=== PATIENT | female | born 1965 | race Caucasian/White ===

== ENCOUNTER 2016-04-20 03:32 | Emergency (ER) | payer MEDICARE, MEDICAID ==
[2016-04-20] MEDS ORDERED: HYDROCODONE/ACETAMINOPHEN 5-325 MG 6 TAB/DSPK PO PRN (04:41)
[2016-04-20] MEDS ORDERED: PENICILLIN V POTASSIUM 500 MG TABLET PO ONE (04:41)
[2016-04-20] MEDS ORDERED: BENZONATATE 100 MG CAPSULE PO ONE (04:41)
--- NOTE | 2016-04-20 04:45 | ER Document Report ---
HPI - HPI Patient complains to provider of: dental pain Pain Level: 5 Context: Patient is a 50-year-old female that comes emergency department for chief complaint of worsening pain in her upper mouth on both sides for the past 3 days , she states she has known dental fractures and fillings that came out, she has a dental appointment in 2 weeks. She denies fever, sore throat, neck pain. - REPRODUCTIVE Reproductive: DENIES: : - DERM Skin Color: Normal Past Medical History - General Information source: Patient - Social History Smoking Status: Current Every Day Smoker Frequency of alcohol use: None Drug Abuse: None Lives with: Alone Family History: None, Reviewed & Not Pertinent Patient has suicidal ideation: No Patient has homicidal ideation: No - Past Medical History Cardiac Medical History: Reports: Hx Congestive Heart Failure, Hx Hypercholesterolemia Denies: Hx Coronary Artery Disease Pulmonary Medical History: Reports: Hx Bronchitis, Hx COPD, Hx Pneumonia, Hx Tuberculosis Endocrine Medical History: Denies: Hx Diabetes Mellitus Type 1, Hx Diabetes Mellitus Type 2 Renal/ Medical History: Denies: Hx Peritoneal Dialysis Musculoskeltal Medical History: Reports Hx Arthritis Psychiatric Medical History: Reports: Hx Depression Past Surgical History: Reports: Hx Appendectomy, Hx Hysterectomy, Hx Tonsillectomy - Immunizations Hx Diphtheria, Pertussis, Tetanus Vaccination: No - > 10 years Vertical Provider Document - CONSTITUTIONAL General Appearance: WD/WN, No Apparent Distress - INFECTION CONTROL TRAVEL OUTSIDE OF THE [place] IN LAST 30 DAYS: No - HEENT HEENT: Atraumatic, Normocephalic. negative: Pharyngeal Exudate, Pharyngeal Tenderness, Pharyngeal Erythema, Tympanic Membrane Red, Tympanic Membrane Bulging Mouth Diagram: 1 - Widespread dental decay with multiple dental caries and mildly erythematous gumline 2 - Widespread dental decay with multiple dental caries and mildly erythematous gumline - NECK Neck: Normal Inspection - RESPIRATORY Respiratory: Breath Sounds Normal, No Respiratory Distress O2 Sat by Pulse Oximetry: 99 - CARDIOVASCULAR Cardiovascular: Regular Rate, Regular Rhythm - GI/ABDOMEN Gastrointestinal: Abdomen Soft, Abdomen Non-Tender - MUSCULOSKELETAL/EXTREMETIES Musculoskeletal/Extremeties: MAEW, FROM, Non-Tender - NEURO Level of Consciousness: Awake, Alert - DERM Integumentary: Warm, Dry, No Rash Course - Vital Signs Vital signs: Temp Pulse Resp BP Pulse Ox 97.7 F 103 H 20 148/99 H 99 04/20/16 03:40 04/20/16 03:40 04/20/16 03:40 04/20/16 03:40 04/20/16 03:40 Discharge - Discharge Clinical Impression: Tooth infection, Pain, dental Condition: Stable Disposition: HOME, SELF-CARE Additional Instructions: Take the antibiotic as directed, take pain medications if needed, follow-up with your dental appointment as planned. Return to emergency department for any concerning or worsening symptoms. Prescriptions: Hydrocodone/Acetaminophen [[place] 5-325 mg Tablet] 1 - 2 tab PO ASDIR #15 tablet Penicillin V Potassium [Penicillin Vk 500 mg Tablet] 500 mg PO BID #20 tablet Forms: Elevated Blood Pressure
[2016-04-20 05:37] VITALS: BP 142/72
== END 2016-04-20 05:30 | disposition home or self-care (01) ==
LOC: ER 03:32
DX: K04.7 Periapical abscess without sinus (principal); K08.89 Other specified disorders of teeth and supporting structures; F17.210 Nicotine dependence, cigarettes, uncomplicated
CPT/HCPCS: 99282; A9270 ×3

== ENCOUNTER → 2016-04-30 | Outpatient (CLI) | payer MEDICARE, MEDICAID | LOC: RAD 13:17 | PROVIDERS: ATTEND Family Medicine | DX: R91.8 Other nonspecific abnormal finding of lung field (principal) | CPT/HCPCS: 71250 ==

== ENCOUNTER 2016-06-16 13:42 | Emergency (ER) | payer MEDICARE, MEDICAID ==
[2016-06-16 14:03] VITALS: BP 171/95
--- NOTE | 2016-06-16 15:14 | ER Document Report ---
ED Medical Screen (RME) - General Chief Complaint: Headache Stated Complaint: SWEATS AND HEADACHE Mode of Arrival: Wheelchair Information source: Patient Notes: 50-year-old female presents with complaints of a headache of 2 week duration with 2 separate episodes where she became shaky sweaty. I have greeted and performed a rapid initial assessment of this patient. A comprehensive ED assessment and evaluation of the patient, analysis of test results and completion of the medical decision making process will be conducted by additional ED providers. PHYSICAL EXAMINATION: GENERAL: Well-appearing, well-nourished and in no acute distress. HEAD: Atraumatic, normocephalic. EYES: Pupils equal round extraocular movements intact, conjunctiva are normal. ENT: Nares patent NECK: Normal range of motion LUNGS: No respiratory distress Musculoskeletal: Normal range of motion NEUROLOGICAL: Normal speech, normal gait. PSYCH: Normal mood, normal affect. SKIN: Warm, Dry, normal turgor, no rashes or lesions noted. TRAVEL OUTSIDE OF THE [place] IN LAST 30 DAYS: No - Related Data Allergies/Adverse Reactions: ketorolac tromethamine [From Toradol] Allergy (Verified 06/16/16 14:00) rash tramadol HCl [From Ultram] Allergy (Verified 06/16/16 14:00) rash Past Medical History - Past Medical History Cardiac Medical History: Reports: Hx Congestive Heart Failure, Hx Hypercholesterolemia Denies: Hx Coronary Artery Disease Pulmonary Medical History: Reports: Hx Bronchitis, Hx COPD, Hx Pneumonia, Hx Tuberculosis Endocrine Medical History: Denies: Hx Diabetes Mellitus Type 1, Hx Diabetes Mellitus Type 2 Renal/ Medical History: Denies: Hx Peritoneal Dialysis Musculoskeltal Medical History: Reports Hx Arthritis Psychiatric Medical History: Reports: Hx Depression Past Surgical History: Reports: Hx Appendectomy, Hx Hysterectomy, Hx Tonsillectomy - Immunizations Hx Diphtheria, Pertussis, Tetanus Vaccination: No - > 10 years Physical Exam - Vital signs Vitals: Temp Pulse Resp BP Pulse Ox 97.3 F 103 H 20 171/95 H 96 06/16/16 14:02 06/16/16 14:02 06/16/16 14:02 06/16/16 14:02 06/16/16 14:02 Course - Vital Signs Vital signs: Temp Pulse Resp BP Pulse Ox 97.3 F 103 H 20 171/95 H 96 06/16/16 14:02 06/16/16 14:02 06/16/16 14:02 06/16/16 14:02 06/16/16 14:02
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
[2016-06-16 15:51] LABS: ABSOLUTE BASOPHILS # (AUTO) 0.1 10^3/uL (0.0-0.2); ABSOLUTE EOSINOPHILS # (AUTO) 0.4 10^3/uL (0.0-0.6); ABSOLUTE LYMPHOCYTES (AUTO) 4.2 10^3/uL (0.5-4.7); ABSOLUTE MONOCYTES (AUTO) 0.6 10^3/uL (0.1-1.4); ABSOLUTE NEUT (AUTO) 6.3 10^3/uL (1.7-8.2); BASOPHILS % (AUTO) 0.8 % (0-2); EOSINOPHILS % (AUTO) 3.1 % (0-6); HEMATOCRIT 43.5 % (36.0-47.0); HEMOGLOBIN 14.6 g/dL (12.0-15.5); HGB HCT DIFFERENCE 0.3; LYMPHOCYTES % (AUTO) 36.3 % (13-45); MEAN CORPUSCULAR HEMOGLOBIN 30.2 pg (27.0-33.4); MEAN CORPUSCULAR HGB CONC 33.6 g/dL (32.0-36.0); MEAN CORPUSCULAR VOLUME 90 fl (80-97); MONOCYTES % (AUTO) 5.1 % (3-13); RED BLOOD COUNT 4.85 10^6/uL (3.72-5.28); RED CELL DISTRIBUTION WIDTH 14.8 % (11.5-14.0); SEGMENTED NEUTROPHILS % (AUTO) 54.7 % (42-78); WHITE BLOOD COUNT 11.5 10^3/uL (4.0-10.5)
[2016-06-16 16:01] LABS: ALANINE AMINOTRANSFERASE 24 U/L (9-52); ALBUMIN 4.2 g/dL (3.5-5.0); ALKALINE PHOSPHATASE 93 U/L (38-126); ANION GAP 12 (5-19); ASPARTATE AMINO TRANSFERASE 18 U/L (14-36); BILIRUBIN,DIRECT 0.4 mg/dL (0.0-0.4); BILIRUBIN,TOTAL 0.5 mg/dL (0.2-1.3); BLOOD UREA NITROGEN 12 mg/dL (7-20); CALCIUM 9.4 mg/dL (8.4-10.2); CARBON DIOXIDE 26 mmol/L (22-30); CHLORIDE 107 mmol/L (98-107); CREATINE KINASE 45 U/L (30-135); CREATININE RESULT 0.93 mg/dL (0.52-1.25); GLUCOSE 117 mg/dL (75-110); POTASSIUM 4.4 mmol/L (3.6-5.0); TOTAL PROTEIN 7.8 g/dL (6.3-8.2)
[2016-06-16] MEDS ORDERED: ONDANSETRON 4 MG TAB.RAPDIS PO ONE (16:04)
[2016-06-16] MEDS ORDERED: ONDANSETRON 4 MG TAB.RAPDIS ONE (16:08)
[2016-06-16 16:12] LABS: CREATINE KINASE MB < 0.22 ng/mL (<4.55); TROPONIN I < 0.012 ng/mL
== END 2016-06-16 16:40 | disposition home or self-care (01) ==
LOC: ER 13:42
DX: R51 Headache (principal); R11.0 Nausea; R61 Generalized hyperhidrosis; R06.00 Dyspnea, unspecified; R15.9 Full incontinence of feces; R32 Unspecified urinary incontinence; R03.0 Elevated blood-pressure reading, without diagnosis of hypertension; Z79.899 Other long term (current) drug therapy; Z88.5 Allergy status to narcotic agent; Z88.8 Allergy status to other drugs, medicaments and biological substances; F17.210 Nicotine dependence, cigarettes, uncomplicated
CPT/HCPCS: 99284; 36415; 82553; 82550; 85025; 80053; 84484; 70450; A9270; S0119

== ENCOUNTER 2016-06-18 02:28 | Emergency (ER) | payer MEDICARE, MEDICAID ==
[2016-06-18 02:43] VITALS: BP 165/90
[2016-06-18] MEDS ORDERED: DIPHENHYDRAMINE HCL 50 MG/ML VIAL IV ONE (04:18)
[2016-06-18] MEDS ORDERED: METHOCARBAMOL INJ/PF 1000 MG/10 ML SDV IV ONE (04:18)
[2016-06-18] MEDS ORDERED: METOCLOPRAMIDE HCL INJ/PF 10 MG/2 ML SDV IV ONE (04:18)
[2016-06-18] MEDS ORDERED: NORMAL SALINE 1000 ML 1,000 ML IV ONE (04:21)
--- NOTE | 2016-06-18 04:22 | ER Document Report ---
ED General - General Chief Complaint: Headache Stated Complaint: HEADACHE Time seen by provider: 04:21 Notes: Patient is a 50-year-old female that comes emergency department for chief complaint of headache, patient also states that she is having intermittent lower abdominal pain and nausea. Patient states she was evaluated yesterday in this emergency department, had a CAT scan of the head, had blood work, was discharged follow-up with her primary care. Patient denies head injury, fever, focal numbness or weakness, visual changes, vomiting. Patient denies history of migraines. She states she has a pain in the back of her head that runs down to her right shoulder and also pain around her forehead. Patient has a history of bipolar, anxiety, depression, hyperlipidemia, hysterectomy, appendectomy. Denies SI or HI TRAVEL OUTSIDE OF THE [place] IN LAST 30 DAYS: No - Related Data Allergies/Adverse Reactions: ketorolac tromethamine [From Toradol] Allergy (Verified 06/16/16 14:00) rash tramadol HCl [From Ultram] Allergy (Verified 06/16/16 14:00) rash Past Medical History - General Information source: Patient - Social History Smoking Status: Current Some Day Smoker Frequency of alcohol use: Occasional Lives with: Family Family History: None, Reviewed & Not Pertinent Patient has suicidal ideation: No Patient has homicidal ideation: No - Past Medical History Cardiac Medical History: Reports: Hx Congestive Heart Failure, Hx Hypercholesterolemia Denies: Hx Coronary Artery Disease Pulmonary Medical History: Reports: Hx Bronchitis, Hx COPD, Hx Pneumonia, Hx Tuberculosis Endocrine Medical History: Denies: Hx Diabetes Mellitus Type 1, Hx Diabetes Mellitus Type 2 Renal/ Medical History: Denies: Hx Peritoneal Dialysis Musculoskeltal Medical History: Reports Hx Arthritis Psychiatric Medical History: Reports: Hx Depression Past Surgical History: Reports: Hx Appendectomy, Hx Hysterectomy, Hx Tonsillectomy - Immunizations Hx Diphtheria, Pertussis, Tetanus Vaccination: No - > 10 years Review of Systems - Review of Systems Constitutional: No symptoms reported EENT: No symptoms reported Cardiovascular: No symptoms reported Respiratory: No symptoms reported Gastrointestinal: See HPI Genitourinary: No symptoms reported Female Genitourinary: No symptoms reported Musculoskeletal: No symptoms reported Skin: No symptoms reported Hematologic/Lymphatic: No symptoms reported Neurological/Psychological: See HPI Physical Exam - Vital signs Vitals: Temp Pulse Resp BP Pulse Ox 97.3 F 79 18 165/90 H 97 04/27/17 02:39 06/18/16 02:39 06/18/16 02:39 06/18/16 02:39 06/18/16 02:39 Interpretation: Normal - General General appearance: Appears well, Alert In distress: None - HEENT Head: Normocephalic, Atraumatic Eyes: Normal Conjunctiva: Normal Extraocular movements intact: Yes Eyelashes: Normal Pupils: PERRL Sinus: Normal Nasal: Normal Mouth/Lips: Normal Mucous membranes: Normal Pharynx: Normal Neck: Normal - Respiratory Respiratory status: No respiratory distress Chest status: Nontender Breath sounds: Normal. No: Decreased air movement, Wheezing Chest palpation: Normal - Cardiovascular Rhythm: Regular. No: Tachycardia Heart sounds: Normal auscultation, S1 appreciated, S2 appreciated Murmur: No - Abdominal Inspection: Normal Distension: No distension Bowel sounds: Normal Tenderness: Nontender Organomegaly: No organomegaly - Back Back: Tender - There is mild tenderness in the right paracervical and trapezius musculature, no midline tenderness, normal upper and lower extremity range of motion, strength, distal neurovascular exam, no saddle anesthesia - Extremities General upper extremity: Normal inspection, Nontender, Normal color, Normal ROM , Normal temperature General lower extremity: Normal inspection, Nontender, Normal color, Normal ROM , Normal temperature, Normal weight bearing. No: Casi's sign - Neurological Neuro grossly intact: Yes Cognition: Normal Orientation: AAOx4 [place] Coma Scale Eye Opening: Spontaneous [place] Coma Scale Verbal: Oriented [place] Coma Scale Motor: Obeys Commands [place] Coma Scale Total: 15 Speech: Normal Motor strength normal: LUE, RUE, LLE, RLE Sensory: Normal - Psychological Associated symptoms: Normal affect - Patient is cooperative, makes good eye contact, conversational, Normal mood - Skin Skin Temperature: Warm Skin Moisture: Dry Skin Color: Normal Course - Re-evaluation Re-evalutation: Patient with mildly tender right paracervical and trapezius muscles on examination, complaining of a headache, appears only mildly uncomfortable. No nuchal rigidity, fever, reported injury, normal neurological exam. CBC with mild leukocytosis, mild elevation of lymphocytes, no shift. Chemistry unremarkable. Abdomen completely benign and soft. On reexamination patient has received medications, sleeping, easily aroused, she states her headache is completely gone, she expresses satisfaction and gratefulness. Provided with Phenergan, Fioricet, discussed follow-up and return precautions, patient states understanding and agreement. - Vital Signs Vital signs: Temp Pulse Resp BP Pulse Ox 97.3 F 79 18 165/90 H 97 06/18/16 02:39 06/18/16 02:39 06/18/16 02:39 06/18/16 02:39 06/18/16 02:39 - Laboratory Result Diagrams: 06/18/16 05:05 06/18/16 05:05 Laboratory results interpreted by me: 06/18/16 06/18/16 06/18/16 05:01 05:05 05:05 WBC 12.1 H RDW 15.1 H Absolute Lymphocytes 4.9 H Sodium 146.2 H Urine Blood SMALL H Discharge - Discharge Clinical Impression: Headache Qualifiers: Headache type: unspecified Headache chronicity pattern: acute headache Intractability: not intractable Qualified Code(s): R51 - Headache Abdominal pain Qualifiers: Abdominal location: generalized Qualified Code(s): R10.84 - Generalized abdominal pain Condition: Stable Disposition: HOME, SELF-CARE Additional Instructions: Your symptoms, examination, and response to treatment are most consistent with a tension headache triggering a migraine. Laboratory workup is nonspecific, no acute abnormalities noted. Avoid recreational drugs. Take the medications prescribed in combination for headaches if needed, take in addition to your home medications. Return to emergency department for any concerning or worsening symptoms. Prescriptions: Butalb/Acetaminophen/Caffeine [Fioricet (50-325-40 mg) Tablet] 1 tab PO Q4HP PRN #30 tab PRN Reason: Promethazine HCl [Phenergan 25 mg Tablet] 1 - 2 tab PO Q6H PRN #15 tablet PRN Reason: Forms: Elevated Blood Pressure
[2016-06-18 05:20] LABS: ABSOLUTE BASOPHILS # (AUTO) 0.1 10^3/uL (0.0-0.2); ABSOLUTE EOSINOPHILS # (AUTO) 0.4 10^3/uL (0.0-0.6); ABSOLUTE LYMPHOCYTES (AUTO) 4.9 10^3/uL (0.5-4.7); ABSOLUTE MONOCYTES (AUTO) 0.7 10^3/uL (0.1-1.4); BASOPHILS % (AUTO) 0.9 % (0-2); EOSINOPHILS % (AUTO) 3.1 % (0-6); HEMATOCRIT 43.4 % (36.0-47.0); HEMOGLOBIN 14.5 g/dL (12.0-15.5); HGB HCT DIFFERENCE 0.1; LYMPHOCYTES % (AUTO) 40.2 % (13-45); MEAN CORPUSCULAR HEMOGLOBIN 29.9 pg (27.0-33.4); MEAN CORPUSCULAR HGB CONC 33.5 g/dL (32.0-36.0); MEAN CORPUSCULAR VOLUME 89 fl (80-97); MONOCYTES % (AUTO) 6.1 % (3-13); RED BLOOD COUNT 4.85 10^6/uL (3.72-5.28); RED CELL DISTRIBUTION WIDTH 15.1 % (11.5-14.0); SEGMENTED NEUTROPHILS % (AUTO) 49.7 % (42-78); WHITE BLOOD COUNT 12.1 10^3/uL (4.0-10.5)
[2016-06-18 05:27] LABS: APPEARANCE,URINE CLEAR; BILIRUBIN,URINE NEGATIVE (NEGATIVE); GLUCOSE, URINE NEGATIVE (NEGATIVE); KETONES,URINE NEGATIVE (NEGATIVE); LEUKOCYTE ESTERASE,URINE NEGATIVE (NEGATIVE); NITRITE,URINE NEGATIVE (NEGATIVE); PROTEIN,URINE NEGATIVE (NEGATIVE); URINE SPECIFIC GRAVITY 1.004; UROBILINOGEN,URINE NEGATIVE mg/dL (<2.0)
[2016-06-18 05:36] LABS: ALANINE AMINOTRANSFERASE 21 U/L (9-52); ALBUMIN 4.2 g/dL (3.5-5.0); ALKALINE PHOSPHATASE 94 U/L (38-126); ANION GAP 14 (5-19); ASPARTATE AMINO TRANSFERASE 21 U/L (14-36); BILIRUBIN,DIRECT 0.4 mg/dL (0.0-0.4); BILIRUBIN,TOTAL 0.5 mg/dL (0.2-1.3); BLOOD UREA NITROGEN 11 mg/dL (7-20); CALCIUM 9.9 mg/dL (8.4-10.2); CARBON DIOXIDE 26 mmol/L (22-30); CHLORIDE 106 mmol/L (98-107); CREATININE RESULT 0.66 mg/dL (0.52-1.25); GLUCOSE 103 mg/dL (75-110); POTASSIUM 4.2 mmol/L (3.6-5.0); SODIUM 146.2 mmol/L (137-145); TOTAL PROTEIN 8.2 g/dL (6.3-8.2)
[2016-06-18 05:41] LABS: URINE BARBITURATES SCREEN NEGATIVE; URINE METHADONE SCREEN NEGATIVE; URINE OPIATES LOW NEGATIVE; URINE PHENCYCLIDINE SCREEN NEGATIVE
[2016-06-18] MEDS ORDERED: MORPHINE SULFATE 10 MG/ML INJ IV ONE (06:11)
== END 2016-06-18 07:15 | disposition home or self-care (01) ==
LOC: ER 02:28
DX: R51 Headache (principal); R10.84 Generalized abdominal pain; R10.30 Lower abdominal pain, unspecified; R11.0 Nausea; F17.200 Nicotine dependence, unspecified, uncomplicated
CPT/HCPCS: 99284; 96361; 96375; 96365; 36415; 85025; 80053; 81001; 80307; J1200; J2800; J2765; J7030

== ENCOUNTER 2016-07-14 11:01 | Emergency (ER) | payer MEDICARE, MEDICAID ==
--- NOTE | 2016-07-14 12:29 | ER Document Report ---
HPI - HPI Patient complains to provider of: right ankle splint Onset: Last week Quality of pain: Achy Severity: Moderate Pain Level: 4 Context: Patient was seen and diagnosed with right ankle sprain last week by her primary care physician. Patient states [employer] is giving her and positioned hard time about ankle splint that was prescribed. Primary care physician instructed patient to come to the emergency room for right ankle splint. Associated Symptoms: None Exacerbated by: Walking Relieved by: Denies Similar symptoms previously: Yes Recently seen / treated by doctor: Yes - ROS ROS below otherwise negative: Yes Systems Reviewed and Negative: Yes All other systems reviewed and negative - CONSTITUTIONAL Constitutional: DENIES: Fever - EENT EENT: DENIES: Congestion - NEURO Neurology: DENIES: Headache - CARDIOVASCULAR Cardiovascular: DENIES: Chest pain - RESPIRATORY Respiratory: DENIES: Trouble Breathing - GASTROINTESTINAL Gastrointestinal: DENIES: Abdominal Pain - URINARY Urinary: DENIES: Dysuria - REPRODUCTIVE Reproductive: DENIES: : - MUSCULOSKELETAL Musculoskeletal: REPORTS: Extremity pain - DERM Skin Color: Normal Skin Problems: None Past Medical History - General Information source: Patient - Social History Smoking Status: Current Every Day Smoker Cigarette use (# per day): Yes Frequency of alcohol use: None Drug Abuse: None Lives with: Family Family History: None, Reviewed & Not Pertinent Patient has suicidal ideation: No Patient has homicidal ideation: No - Past Medical History Cardiac Medical History: Reports: Hx Congestive Heart Failure, Hx Hypercholesterolemia Pulmonary Medical History: Reports: Hx Bronchitis, Hx COPD, Hx Pneumonia, Hx Tuberculosis Musculoskeltal Medical History: Reports Hx Arthritis Psychiatric Medical History: Reports: Hx Depression Past Surgical History: Reports: Hx Appendectomy, Hx Hysterectomy, Hx Tonsillectomy - Immunizations Hx Diphtheria, Pertussis, Tetanus Vaccination: No - > 10 years Vertical Provider Document - CONSTITUTIONAL Agree With Documented VS: Yes Exam Limitations: No Limitations General Appearance: WD/WN, No Apparent Distress - INFECTION CONTROL TRAVEL OUTSIDE OF THE [place] IN LAST 30 DAYS: No - HEENT HEENT: Atraumatic, Normocephalic - RESPIRATORY Respiratory: Breath Sounds Normal, No Respiratory Distress O2 Sat by Pulse Oximetry: 98 - CARDIOVASCULAR Cardiovascular: Regular Rate, Regular Rhythm - MUSCULOSKELETAL/EXTREMETIES Musculoskeletal/Extremeties: Tender - Right ankle, No Edema - NEURO Level of Consciousness: Awake, Alert, Appropriate - DERM Integumentary: Warm, Dry Course - Vital Signs Vital signs: Temp Pulse Resp BP Pulse Ox 98.0 F 96 18 164/80 H 98 07/14/16 11:25 07/14/16 11:25 07/14/16 11:25 07/14/16 11:25 07/14/16 11:25 Procedures - Immobilization Right Ankle Time completed: 13:02 Pre-Proc Neuro Vasc Exam: Normal Immobilizer type: Ankle stirrup Performed by: PCT Post-Proc Neuro Vasc Exam: Normal Alignment checked and good: Yes Discharge - Discharge Clinical Impression: Right ankle sprain Qualifiers: Encounter type: initial encounter Involved ligament of ankle: other ligament Qualified Code(s): S93.491A - Sprain of other ligament of right ankle, initial encounter Condition: Good Disposition: HOME, SELF-CARE Instructions: Sprained Ankle ([facility]) Additional Instructions: Wear splint as instructed Ibuprofen as needed for pain, ice packs as needed Follow-up with your primary care next week for recheck. Return as needed
[2016-07-14 13:02] VITALS: BP 152/78
== END 2016-07-14 12:50 | disposition home or self-care (01) ==
LOC: ER 11:01
DX: S93.401D Sprain of unspecified ligament of right ankle, subsequent encounter (principal); W01.0XXD Fall on same level from slipping, tripping and stumbling without subsequent striking against object, subsequent encounter; F17.210 Nicotine dependence, cigarettes, uncomplicated; J44.9 Chronic obstructive pulmonary disease, unspecified
CPT/HCPCS: 99283; L4350

== ENCOUNTER 2016-08-10 03:57 | Emergency (ER) | payer MEDICARE, MEDICAID ==
[2016-08-10 04:11] VITALS: BP 127/80
== END 2016-08-10 06:39 | disposition left against medical advice (07) ==
LOC: ER 03:57
DX: Z53.9 Procedure and treatment not carried out, unspecified reason (principal); M25.579 Pain in unspecified ankle and joints of unspecified foot

== ENCOUNTER → 2016-08-15 | Outpatient (CLI) | payer MEDICARE, MEDICAID ==
--- NOTE | 2016-08-15 11:53 | RADIOLOGY REPORT (SQ) ---
EXAM DESCRIPTION: CT CHEST WITHOUT COMPLETED DATE/TIME: 08/15/2016 11:22 am REASON FOR STUDY: FRACTURE ONE RIB LEFT SIDE S22.32XA FRACTURE OF ONE RIB, LEFT SIDE, INIT FOR CLOS FX COMPARISON: 04/30/2016 TECHNIQUE: CT scan performed of the chest without intravenous contrast. Images reviewed with lung, soft tissue and bone windows. Reconstructed coronal and sagittal MPR images reviewed. All images st ored on PACS. All CT scanners at this facility use dose modulation, iterative reconstruction, and/or weight based d osing when appropriate to reduce radiation dose to as low as reasonably achievable (ALARA). [facility]: Dose Right [facility]: CareDose [facility]: Dose Right [facility]: Teradose 4D [facility]: [employer] RADIATION DOSE: 9.68 mGy. LIMITATIONS: No technical limitations. FINDINGS: LUNGS AND PLEURA: Small left effusion. No pneumothorax. HILAR AND MEDIASTINAL STRUCTURES: No identified masses or abnormal nodes. No obvious aneurysm. HEART AND VASCULAR STRUCTURES: No aneurysm. No pericardial effusion. UPPER ABDOMEN: No significant findings. Limited exam. THYROID AND OTHER SOFT TISSUES: No masses. No adenopathy. BONES: Minimally displaced fracture of the 6th lateral left rib. HARDWARE: None in the chest. OTHER: No other significant findings. IMPRESSION: Small left effusion. Minimally displaced left lateral 6th rib fracture. TECHNICAL DOCUMENTATION: JOB ID: [id number] Quality ID # [id number]: Final reports with documentation of one or more dose reduction techniques (e.g., Au tomated exposure control, adjustment of the mA and/or kV according to patient size, use of iterative reconstruction technique) 2010 [employer]- All Rights Reserved
== END ==
LOC: RAD 10:55
PROVIDERS: ATTEND Physician Assistant
DX: S22.32XA Fracture of one rib, left side, initial encounter for closed fracture (principal); W19.XXXA Unspecified fall, initial encounter; Y93.67 Activity, basketball; Y92.9 Unspecified place or not applicable
CPT/HCPCS: 71250

== ENCOUNTER 2016-08-17 12:23 | Emergency (ER) | payer MEDICARE, MEDICAID ==
[2016-08-17] MEDS ORDERED: OXYCODONE-ACETAMINOPHEN 5-325 MG TABLET PO ONE (14:20)
[2016-08-17] MEDS ORDERED: DIPH/PERTUSS(ACELL)/TETANUS VAC/PF 0.5 ML SYR (>=10YO) IM ONE (14:21)
[2016-08-17] MEDS ORDERED: LIDOCAINE 1% INJ-PF (10 MG/ML) 30 ML SDV INJ ONE (14:21)
--- NOTE | 2016-08-17 14:40 | RADIOLOGY REPORT (SQ) ---
EXAM DESCRIPTION: FINGER LEFT COMPLETED DATE/TIME: 08/17/2016 2:31 pm REASON FOR STUDY: laceration, pain COMPARISON: None. NUMBER OF VIEWS: Three views. TECHNIQUE: AP, lateral, and oblique images acquired of the left third finger. LIMITATIONS: None. FINDINGS: MINERALIZATION: Normal. BONES: No acute fracture or dislocation. No worrisome bone lesions. SOFT TISSUES: Laceration left 3rd finger tip. No soft tissue swelling. No radiopaque foreign body. OTHER: AP view left hand demonstrates advanced osteoarthritis at the left 1st carpometacarpal joint IMPRESSION: No acute fracture or retained radiopaque foreign bodies left 3rd (middle) finger COMMENT: SITE OF TRAUMA/COMPLAINT MARKED/STAMP COMPLETED: Yes TECHNICAL DOCUMENTATION: JOB ID: [id number] [email or web address]- All Rights Reserved
--- NOTE | 2016-08-17 15:34 | ER Document Report ---
ED Wound - General Chief Complaint: Laceration Stated Complaint: LEFT 3RD AND 4TH DIGIT LACERATION Time Seen by Provider: 08/17/16 14:03 TRAVEL OUTSIDE OF THE [place] IN LAST 30 DAYS: No - HPI Patient complains to provider of: Laceration - from electronic garden lissy Occurred: Just prior to arrival Skin Color: Normal, [place] Capillary refill: < 3 seconds Sensations intact: Yes Associated Symptoms: Bleeding - Related Data Allergies/Adverse Reactions: ketorolac tromethamine [From Toradol] Allergy (Verified 08/17/16 12:40) rash tramadol HCl [From Ultram] Allergy (Verified 08/17/16 12:40) rash Past Medical History - Social History Smoking Status: Current Every Day Smoker Chew tobacco use (# tins/day): No Frequency of alcohol use: None Drug Abuse: None Family History: None, Reviewed & Not Pertinent Patient has suicidal ideation: No Patient has homicidal ideation: No - Past Medical History Cardiac Medical History: Reports: Hx Congestive Heart Failure, Hx Hypercholesterolemia Denies: Hx Coronary Artery Disease Pulmonary Medical History: Reports: Hx Bronchitis, Hx COPD, Hx Pneumonia, Hx Tuberculosis Endocrine Medical History: Denies: Hx Diabetes Mellitus Type 1, Hx Diabetes Mellitus Type 2 Renal/ Medical History: Denies: Hx Peritoneal Dialysis Musculoskeltal Medical History: Reports Hx Arthritis Psychiatric Medical History: Reports: Hx Depression Past Surgical History: Reports: Hx Appendectomy, Hx Hysterectomy, Hx Tonsillectomy - Immunizations Hx Diphtheria, Pertussis, Tetanus Vaccination: No - > 10 years Review of Systems - Review of Systems Constitutional: No symptoms reported Musculoskeletal: See HPI Skin: See HPI Physical Exam - Vital signs Vitals: Temp Pulse Resp BP Pulse Ox 98.3 F 80 20 153/77 H 99 08/17/16 15:43 08/17/16 15:43 08/17/16 15:43 08/17/16 15:43 08/17/16 15:43 - General General appearance: Appears well, Alert In distress: None - Cardiovascular Pulses: Normal: Radial Normal capillary refill: Yes - Extremities Hand: Tender - at site of lac, No evidence of FB, Swelling. No: Deformity, Dislocation, Tendon deficit - Neurological Motor strength normal: LUE, RUE, LLE, RLE Additional motor exam normals: Equal size marker Sensory: Normal - Skin Skin Temperature: Warm Skin Moisture: Dry Skin Color: Normal Skin Turgor: Elastic Skin irregularity: Laceration - one noted on the medial flexor surface of the 2nd digit as a flap not involving the dermis, no bleeding, skin intact. second laceration at the distal flexor surface of the 3rd digit past the dermis, bleeding minimal but clot intact Course - Re-evaluation Re-evalutation: 08/17/16 17:52 Patient is a 50-year-old female who is hemodynamic stable, no acute distress afebrile. No evidence of fracture or foreign body noted on x-ray. Patient's tetanus status is updated, irrigated with Betadine at the bedside. Third digit laceration closed with 4 6-0 nylon sutures. Patient tolerated procedure well. Patient to follow-up with Dr. Oliva for suture removal in 8-10 days. Patient is agreeable with plan. - Vital Signs Vital signs: Temp Pulse Resp BP Pulse Ox 98.3 F 80 20 153/77 H 99 08/17/16 15:43 08/17/16 15:43 08/17/16 15:43 08/17/16 15:43 08/17/16 15:43 Procedures - Laceration/Wound Repair Left 3rd digit Wound length (cm): 2 Wound's Depth, Shape: Linear Anesthetic type: 1% Lidocaine Volume Anesthetic (mLs): 5 - digital block Wound explored: Clean, No foreign body removed Wound Debrided: Minimal Wound Repaired With: Sutures Suture Size/Type: 6:0, Nylon Number of Sutures: 4 Layer Closure?: No Post-procedure wound care: Sterile dressing applied Post-procedure NV exam normal: Yes Complications: No Discharge - Discharge Clinical Impression: Laceration Condition: Good Disposition: HOME, SELF-CARE Instructions: Antibiotic Ointment Protection ([facility]), Laceration Care ([facility]), Tetanus Immunization Given ([facility]), Soap Cleansing ([facility]) Additional Instructions: See Dr. Oliva in 8-10 days to get your stitches out Prescriptions: Ibuprofen [Motrin 800 mg Tablet] 800 mg PO Q8H PRN #30 tab PRN Reason: Referrals: TONE JEROME MD [Primary Care Provider] - Follow up as needed
[2016-08-17 15:46] VITALS: BP 153/77
== END 2016-08-17 15:43 | disposition home or self-care (01) ==
LOC: ER 12:23
PROC: 0HQGXZZ Repair Left Hand Skin, External Approach (ICD-10-PCS; principal; 2016-08-17)
DX: S61.213A Laceration without foreign body of left middle finger without damage to nail, initial encounter (principal); S61.218A Laceration without foreign body of other finger without damage to nail, initial encounter; W29.8XXA Contact with other powered hand tools and household machinery, initial encounter; Y93.H2 Activity, gardening and landscaping; J44.9 Chronic obstructive pulmonary disease, unspecified; F17.200 Nicotine dependence, unspecified, uncomplicated; Z88.8 Allergy status to other drugs, medicaments and biological substances; Z88.5 Allergy status to narcotic agent; Z23 Encounter for immunization
CPT/HCPCS: 99283; 90471; 73140; 90715; 12001; J3490; A9270

== ENCOUNTER 2017-11-26 04:16 | Emergency (ER) | payer OTHER, MEDICARE, MEDICAID ==
[2017-11-26 04:22] VITALS: BP 175/85
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
== END 2017-11-26 05:06 | disposition home or self-care (01) ==
LOC: ER 04:16
DX: M54.2 Cervicalgia (principal); M62.838 Other muscle spasm; V49.00XA Driver injured in collision with unspecified motor vehicles in nontraffic accident, initial encounter; Y92.524 Gas station as the place of occurrence of the external cause; F17.200 Nicotine dependence, unspecified, uncomplicated; I10 Essential (primary) hypertension; J44.9 Chronic obstructive pulmonary disease, unspecified
CPT/HCPCS: 99283

== ENCOUNTER 2018-03-21 14:44 | Emergency (ER) | payer MEDICARE, MEDICAID ==
[2018-03-21 14:52] VITALS: BP 144/77
[2018-03-21] MEDS ORDERED: HYDROCODONE/ACETAMINOPHEN 5-325 MG TABLET PO ONE (17:26)
--- NOTE | 2018-03-21 17:28 | ER Document Report ---
ED Medical Screen (RME) - General Chief Complaint: Abscess Stated Complaint: ABSCESS Time Seen by Provider: 03/21/18 17:25 Primary Care Provider: HENRI NEWMAN MD [Primary Care Provider] - Follow up as needed Mode of Arrival: Ambulatory Information source: Patient Notes: 52-year-old female presented to ED for complaint of abscess to the left groin area. She states it is been there for several days. She does have pain with any movement or walking. She states she has had one abscess in this area in the past. She does not know if she had MRSA. She does have a history of a hysterectomy tonsillectomy and appendectomy. She also has a history of bipolar, borderline personality disorder, ADHD, anxiety, and depression. She states she smokes 3 cigarettes a day does not drink does not do drugs and is disabled for due to her mental illness. I have greeted and performed a rapid initial assessment of this patient. A comprehensive ED assessment and evaluation of the patient, analysis of test results and completion of medical decision making process will be conducted by an additional ED providers. TRAVEL OUTSIDE OF THE [place] IN LAST 30 DAYS: No - Related Data Allergies/Adverse Reactions: ketorolac tromethamine [From Toradol] Allergy (Verified 03/21/18 14:48) rash tramadol HCl [From Ultram] Allergy (Verified 03/21/18 14:48) rash Past Medical History - Social History Chew tobacco use (# tins/day): No Frequency of alcohol use: None Drug Abuse: None - Past Medical History Cardiac Medical History: Reports: Hx Congestive Heart Failure, Hx Hypercholesterolemia, Hx Hypertension Denies: Hx Coronary Artery Disease Pulmonary Medical History: Reports: Hx Bronchitis, Hx COPD, Hx Pneumonia, Hx Tuberculosis Endocrine Medical History: Denies: Hx Diabetes Mellitus Type 1, Hx Diabetes Mellitus Type 2 Renal/ Medical History: Denies: Hx Peritoneal Dialysis Musculoskeltal Medical History: Reports Hx Arthritis Psychiatric Medical History: Reports: Hx Depression Past Surgical History: Reports: Hx Appendectomy, Hx Hysterectomy, Hx Tonsillectomy - Immunizations Hx Diphtheria, Pertussis, Tetanus Vaccination: No - > 10 years Physical Exam - Vital signs Vitals: Temp Pulse Resp BP Pulse Ox 100.4 F 83 18 144/77 H 96 03/21/18 14:51 03/21/18 14:51 03/21/18 14:51 03/21/18 14:51 03/21/18 14:51 Course - Vital Signs Vital signs: Temp Pulse Resp BP Pulse Ox 100.4 F 83 18 144/77 H 96 03/21/18 14:51 03/21/18 14:51 03/21/18 14:51 03/21/18 14:51 03/21/18 14:51 Doctor's Discharge - Discharge Referrals: HENRI NEWMAN MD [Primary Care Provider] - Follow up as needed
== END 2018-03-21 20:50 | disposition left against medical advice (07) ==
LOC: ER 14:44
DX: L02.214 Cutaneous abscess of groin (principal); I50.9 Heart failure, unspecified; E78.00 Pure hypercholesterolemia, unspecified; I11.0 Hypertensive heart disease with heart failure; Z90.710 Acquired absence of both cervix and uterus; Z88.6 Allergy status to analgesic agent
CPT/HCPCS: 99281; A9270

== ENCOUNTER 2019-08-16 10:30 | Inpatient (IN) | payer MEDICARE, MEDICAID ==
[2019-08-16 11:10] LABS: ABSOLUTE BASOPHILS # (AUTO) 0.1 10^3/uL (0.0-0.2); ABSOLUTE EOSINOPHILS # (AUTO) 0.3 10^3/uL (0.0-0.6); ABSOLUTE LYMPHOCYTES (AUTO) 1.6 10^3/uL (0.5-4.7); ABSOLUTE MONOCYTES (AUTO) 0.8 10^3/uL (0.1-1.4); ABSOLUTE NEUT (AUTO) 6.5 10^3/uL (1.7-8.2); BASOPHILS % (AUTO) 0.7 % (0-2); EOSINOPHILS % (AUTO) 3.5 % (0-6); HEMATOCRIT 40.7 % (36.0-47.0); LYMPHOCYTES % (AUTO) 17.4 % (13-45); MEAN CORPUSCULAR HEMOGLOBIN 31.2 pg (27.0-33.4); MEAN CORPUSCULAR HGB CONC 34.4 g/dL (32.0-36.0); MEAN CORPUSCULAR VOLUME 91 fl (80-97); MONOCYTES % (AUTO) 8.6 % (3-13); PLATELET COUNT 249 10^3/uL (150-450); RED BLOOD COUNT 4.49 10^6/uL (3.72-5.28); RED CELL DISTRIBUTION WIDTH 12.7 % (11.5-14.0); SEGMENTED NEUTROPHILS % (AUTO) 69.8 % (42-78); TOTAL CELLS COUNTED % (AUTO) 100 %; WHITE BLOOD COUNT 9.4 10^3/uL (4.0-10.5)
[2019-08-16 11:35] LABS: ALBUMIN 3.4 g/dL (3.5-5.0); ALKALINE PHOSPHATASE 91 U/L (38-126); ASPARTATE AMINO TRANSFERASE 17 U/L (14-36); BILIRUBIN,TOTAL 0.6 mg/dL (0.2-1.3); BLOOD UREA NITROGEN 8 mg/dL (7-20); CALCIUM 8.8 mg/dL (8.4-10.2); CARBON DIOXIDE 31 mmol/L (22-30); CHLORIDE 100 mmol/L (98-107); GLUCOSE 122 mg/dL (75-110); TOTAL PROTEIN 6.9 g/dL (6.3-8.2)
[2019-08-16 11:40] LABS: ANION GAP 5 (5-19)
--- NOTE | 2019-08-16 12:18 | RADIOLOGY REPORT (SQ) ---
EXAM DESCRIPTION: CHEST SINGLE VIEW IMAGES COMPLETED DATE/TIME: 08/16/2019 12:02 pm REASON FOR STUDY: sob COMPARISON: 01/25/15 EXAM PARAMETERS: NUMBER OF VIEWS: One view. TECHNIQUE: Single frontal radiographic view of the chest acquired. RADIATION DOSE: NA LIMITATIONS: None. FINDINGS: LUNGS AND PLEURA: Mildly increased interstitial markings without focal consolidation. No pleural effusion. No pneumothorax. MEDIASTINUM AND HILAR STRUCTURES: No masses. Contour normal. HEART AND VASCULAR STRUCTURES: Heart normal in size. Mild central vascular congestion. BONES: No acute findings. HARDWARE: None in the chest. OTHER: No other significant finding. IMPRESSION: Findings suggest early CHF exacerbation. Infectious etiology is not excluded. TECHNICAL DOCUMENTATION: JOB ID: [id number] 2010 [employer]- All Rights Reserved Reading location - IP/workstation name: [email or web address]
--- NOTE | 2019-08-16 13:15 | EKG REPORT ---
SEVERITY:- NORMAL ECG - SINUS RHYTHM : Confirmed by: Yung Byrnes 16-Aug-2019 13:14:36
--- NOTE | 2019-08-16 14:03 | RADIOLOGY REPORT (SQ) ---
EXAM DESCRIPTION: CTA CHEST IMAGES COMPLETED DATE/TIME: 08/16/2019 12:33 pm REASON FOR STUDY: cough/abnormal xray COMPARISON: CT chest, 08/15/2016. Chest radiograph same date. TECHNIQUE: CT scan of the chest performed using helical scanning technique with dynamic intravenous contrast injection. Images reviewed with lung, soft tissue and bone windows. Reconstructed coronal and sagittal MPR images reviewed. Additional 3 dimensional post-processing performed to develop Maximal Intensity Projection images (MO P). All images stored on PACS. All CT scanners at this facility use dose modulation, iterative reconstruction, and/or weight based d osing when appropriate to reduce radiation dose to as low as reasonably achievable (ALARA). [facility]: Dose Right [facility]: CareDose [facility]: Dose Right [facility]: Teradose 4D [facility]: [employer] CONTRAST TYPE AND DOSE: 51 mL Omnipaque 350- low osmolar. Contrast bolus optimized for the pulmonary arteries. Not diagnostic for the aorta. RENAL FUNCTION: GFR > 60. RADIATION DOSE: CT Rad equipment meets quality standard of care and radiation dose reduction techniq ues were employed. CTDIvol: 6.6 - 14.3 mGy. DLP: 573 mGy-cm. . LIMITATIONS: None. FINDINGS: LUNGS AND PLEURA: The trachea has normal caliber and appearance. No bronchial wall thicke hubert or bronchiectasis. Patchy areas of ground-glass attenuation in both lungs with no focal conflue nt consolidation. Mild septal wall thickening particularly at the lung apices. No pleural effusion. No pneumothorax. Calcified granuloma right lower lobe. No suspicious pulmonary nodules. AORTA AND GREAT VESSELS: No aneurysm. Contrast bolus not optimized for the aorta. HEART: No pericardial effusion. No significant coronary artery calcifications. PULMONARY ARTERIES: No emboli visualized in the main pulmonary arteries or the segmental branches. HILAR AND MEDIASTINAL STRUCTURES: No identified masses or abnormal nodes. HARDWARE: None in the chest. UPPER ABDOMEN: No significant findings. Limited exam. THYROID AND OTHER SOFT TISSUES: No masses. No adenopathy. BONES: No acute or significant finding. 3D MIPS: Confirm above findings. OTHER: No other significant finding. IMPRESSION: 1. Patchy areas of ground-glass attenuation in both lungs may represent mild pulmonary edema, however infectious/inflammatory process is not excluded. Imaging features can be seen with COVID-19 pneumon ia, though are nonspecific and can occur with a variety of infectious and noninfectious processes. 2. No pulmonary embolism. COMMENT: Quality ID # [id number]: Final reports with documentation of one or more dose reduction techniques (e.g., Automated exposure control, adjustment of the mA and/or kV according to patient size, use of iterative reconstruction technique) TECHNICAL DOCUMENTATION: JOB ID: [id number] 2010 [employer]- All Rights Reserved Reading location - IP/workstation name: [email or web address]
--- NOTE | 2019-08-16 14:37 | ER Document Report ---
ED General - General Chief Complaint: Shortness Of Breath Stated Complaint: HEADACHE/NAUSEA/VOMITING Time Seen by Provider: 08/16/19 11:11 Primary Care Provider: HENRI NEWMAN MD [Primary Care Provider] - Follow up as needed Mode of Arrival: Ambulatory Information source: Patient TRAVEL OUTSIDE OF THE [place] IN LAST 30 DAYS: No - HPI Notes: Patient is 53-year-old meat female comes in complaining of cough and congestion. She also complains of diffuse body aches. She denies any known covert virus exposures. She also claims she has had some loose stool. The body aches are intermittent. They are worse with movement and better with rest. They do radiate throughout her body. They are moderate. She states the cough has been productive of yellow-green sputum. No fevers. - Related Data Allergies/Adverse Reactions: ketorolac tromethamine [From Toradol] Allergy (Verified 08/16/19 10:54) rash tramadol HCl [From Ultram] Allergy (Verified 08/16/19 10:54) rash Past Medical History - General Information source: Patient - Social History Smoking Status: Current Every Day Smoker Frequency of alcohol use: None Drug Abuse: None Family History: None, Reviewed & Not Pertinent Patient has homicidal ideation: No - Past Medical History Cardiac Medical History: Reports: Hx Congestive Heart Failure, Hx Hypercholesterolemia, Hx Hypertension Denies: Hx Coronary Artery Disease Pulmonary Medical History: Reports: Hx Bronchitis, Hx COPD, Hx Pneumonia, Hx Tuberculosis Endocrine Medical History: Denies: Hx Diabetes Mellitus Type 1, Hx Diabetes Mellitus Type 2 Renal/ Medical History: Denies: Hx Peritoneal Dialysis Musculoskeletal Medical History: Reports Hx Arthritis Psychiatric Medical History: Reports: Hx Depression Past Surgical History: Reports: Hx Appendectomy, Hx Hysterectomy, Hx Tonsillectomy - Immunizations Hx Diphtheria, Pertussis, Tetanus Vaccination: No - > 10 years Review of Systems - Review of Systems Constitutional: denies: Chills, Fever Cardiovascular: denies: Chest pain, Palpitations Respiratory: Cough, Short of breath -: Yes All other systems reviewed and negative Physical Exam - Vital signs Vitals: Temp 98.4 F 08/16/19 10:46 Interpretation: Normal - General General appearance: Appears well, Alert - HEENT Head: Normocephalic, Atraumatic Eyes: Normal Pupils: PERRL - Respiratory Respiratory status: No respiratory distress Chest status: Nontender Breath sounds: Rhonchi Chest palpation: Normal - Cardiovascular Rhythm: Regular Heart sounds: Normal auscultation Murmur: No - Abdominal Inspection: Normal Distension: No distension Bowel sounds: Normal Tenderness: Nontender Organomegaly: No organomegaly - Back Back: Normal, Nontender - Extremities General upper extremity: Normal inspection, Nontender, Normal color, Normal ROM, Normal temperature General lower extremity: Normal inspection, Nontender, Normal color, Normal ROM, Normal temperature, Normal weight bearing. No: Casi's sign - Neurological Neuro grossly intact: Yes Cognition: Normal Orientation: AAOx4 [place] Coma Scale Eye Opening: Spontaneous Yaa Coma Scale Verbal: Oriented Yaa Coma Scale Motor: Obeys Commands [place] Coma Scale Total: 15 Speech: Normal Motor strength normal: LUE, RUE, LLE, RLE Sensory: Normal - Psychological Associated symptoms: Normal affect, Normal mood - Skin Skin Temperature: Warm Skin Moisture: Dry Skin Color: Normal Course - Re-evaluation Re-evalutation: 08/16/19 14:37 Patient denies any known COVID virus exposures however patient presents with systemic symptoms that would seem consistent with COVID such as diffuse body aches and cough congestion. Also has some mild shortness of breath. Patient's chest x-ray showed questionable pulmonary edema however her BNP was normal. She does not have significant cardiomegaly nor a previous history. Therefore CTA was done CTA is being read as consistent with pneumonia possibly COVID. Patient has stable vital signs and does not require admission at this time especially in light of the fact that she may have COVID. The most prudent thing seems to be to start the patient on antibiotics and have her quarantine herself until the results of her covid test have returned. 08/16/19 14:39 CURB-65 is 0 - Vital Signs Vital signs: Temp Pulse Resp BP Pulse Ox 98.4 F 97 18 111/61 94 08/16/19 11:07 08/16/19 11:07 08/16/19 11:07 08/16/19 11:07 08/16/19 11:07 - Laboratory Result Diagrams: 08/16/19 11:00 08/16/19 11:00 Laboratory results interpreted by me: 08/16/19 11:00 Sodium 135.5 L Carbon Dioxide 31 H Glucose 122 H Albumin 3.4 L - Diagnostic Test Radiology reviewed: Image reviewed, Reports reviewed - EKG Interpretation by Me EKG shows normal: Sinus rhythm Rate: Normal - 93 Rhythm: NSR [place]/QRS: No: Right axis deviation, Left axis deviation Discharge - Discharge Clinical Impression: Suspected COVID-19 virus infection Pneumonia Qualifiers: Pneumonia type: due to unspecified organism Laterality: bilateral Lung location: upper lobe of lung Qualified Code(s): J18.9 - Pneumonia, unspecified organism Condition: Stable Disposition: HOME, SELF-CARE Instructions: COVID-19 Guidance for Persons Under Investigation Additional Instructions: Please quarantine yourself until your Covid results have returned Prescriptions: Cefdinir 300 mg PO BID 7 Days #14 capsule Forms: Return to Work Referrals: HENRI NEWMAN MD [Primary Care Provider] - Follow up tomorrow
[2019-08-16] MEDS ORDERED: CEFTRIAXONE 2 GM/D5W RTU 2 GM/50 ML RTUPB IV ONE (15:23)
[2019-08-16] MEDS ORDERED: AZITHROMYCIN 250 MG TABLET PO ONE (15:23)
--- NOTE | 2019-08-16 15:53 | ER Document Report ---
Doctor's Note Notes: 08/16/19 15:52 The plan was to discharge the patient. However when I went in to reassess the patient before discharge it was noticed that her pulse ox was in the 80s. With ambulation it was in the low 80s. Therefore patient will be admitted for pneumonia and hypoxia.
[2019-08-16] MEDS ORDERED: NORMAL SALINE 1000 ML 1,000 ML IV PRN (16:46)
[2019-08-16] MEDS ORDERED: ALBUTEROL SULFATE HFA (90 MCG/PUFF) 8 GM MDI IH PRN (16:46)
[2019-08-16] MEDS ORDERED: NICOTINE 21 MG/24 HR PATCH.TD24 TD PRN (16:46)
[2019-08-16] MEDS ORDERED: ACETAMINOPHEN 325 MG TABLET PO PRN (16:46)
[2019-08-16] MEDS ORDERED: GUAIFENESIN SYRP 200 MG/10 ML UDC PO PRN (16:46)
[2019-08-16] MEDS ORDERED: METHOCARBAMOL 500 MG TABLET PO PRN (17:02)
[2019-08-16] MEDS ORDERED: ALBUTEROL SULFATE HFA (90 MCG/PUFF) 200 PUFF/8.5 GM MDI IH PRN (17:06)
[2019-08-16] MEDS ORDERED: BUTALB/ACETAMINOPHEN/CAFFEINE 1 TAB EACH PO PRN (17:09)
[2019-08-16] MEDS ORDERED: LORAZEPAM INJ 2 MG/1 ML VIAL IV PRN (17:35)
[2019-08-16] MEDS ORDERED: HYDROCODONE/ACETAMINOPHEN 10-325 MG TABLET PO PRN (17:35)
--- NOTE | 2019-08-16 17:35 | PDOC H&P ---
History of Present Illness Admission Date/PCP: HENRI NEWMAN MD Patient complains of: Shortness of breath with headache and nausea History of Present Illness: YASIR AVILA is a 53 year old female who reports that over the last 4 to 5 days has been exhibiting increasing shortness of breath. The patient initially had mild shortness of breath. As the dyspnea increased she also began to have headache and nausea without vomiting. She denies diarrhea. There was no lightheadedness, dizziness or passing out. She reports a cough productive of green sputum. She is a daily smoker of 1 pack/day. She has experienced respiratory arrest in the past from polypharmacy overdose and was intubated with successful extubation. Oxygen saturation was only 88% on room air and she exhibited increased work of breathing and requires supplemental oxygen by nasal cannula to keep her saturation greater than 90%. She is afebrile. She has a normal white blood cell count. There is no lymphopenia. CT scan of the chest revealed multiple groundglass infiltrates. There was no evidence of pulmonary embolism. Ferritin, d-dimer, PT and PTT are pending. The patient will be tested for Covid-19. Several features of her illness are consistent with possible infection. She will be placed in the isolated area for patients under investigation. Past Medical History Cardiac Medical History: Reports: Congestive Heart Failure, Hyperlipidema, Hypertension Denies: Coronary Artery Disease Pulmonary Medical History: Reports: Bronchitis, Chronic Obstructive Pulmonary Disease (COPD), Intubation, Pneumonia, Tuberculosis Neurological Medical History: Reports: Other - Headaches Denies: Ischemic CVA, Seizures Endocrine Medical History: Denies: Diabetes Mellitus Type 1, Diabetes Mellitus Type 2, Hypothyroidism Renal/ Medical History: Denies: Chronic Kidney Disease Malignancy Medical History: Reports: None GI Medical History: Reports: Gastroesophageal Reflux Disease Musculoskeltal Medical History: Reports: Arthritis Skin Medical History: Reports: None Psychiatric Medical History: Reports: Depression, Tobacco Dependency Denies: Alcohol Dependency Hematology: Denies: Anemia, Bleeding Tendencies, Neutropenia Past Surgical History Past Surgical History: Reports: Appendectomy, Hysterectomy, Tonsillectomy Social History Information Source: Patient - Patient is with 2 children Lives with: Alone Smoking Status: Current Every Day Smoker Cigarettes Packs Per Day: 1 Electronic Cigarette use?: No Frequency of Alcohol Use: None Hx Recreational Drug Use: Yes Drugs: Cocaine, Other - Pain medication Hx Prescription Drug Abuse: Yes - Patient overdosed many years ago with cocaine, methadone and Percocet - Advance Directive Resuscitation Status: Full Code Surrogate healthcare decision maker:: She reports that her daughter is the decision maker Family History Family History: CAD, Malignancy Parental Family History Reviewed: Yes Children Family History Reviewed: Yes Sibling(s) Family History Reviewed.: Yes Medication/Allergy Home Medications: Meloxicam 15 mg PO DAILY 03/06/13 Oxycodone HCl/Acetaminophen [Percocet 5-325 mg Tablet] 1 - 2 tab PO Q4 PRN 03/06/13 Pravastatin Sodium [Pravachol] 10 mg PO DAILY 03/06/13 Paroxetine HCl [Paxil] 11/17/14 Azithromycin [Zithromax 250 mg Tablet] 250 mg PO ASDIR PRN #6 tablet 01/25/15 Prednisone [Deltasone 20 mg Tablet] 60 mg PO DAILY #12 tablet 01/25/15 Ciprofloxacin HCl [Cipro 500 mg Tablet] 500 mg PO BID #10 tablet 01/28/15 Fluconazole [Diflucan] 150 mg PO ONCE PRN #1 tablet 01/28/15 Omeprazole Magnesium [Prilosec Otc] 20 mg PO DAILY #30 tablet. 09/20/15 Oxycodone HCl/Acetaminophen [Percocet 5-325 mg Tablet] 1 - 2 tab PO ASDIR PRN #25 tablet 09/20/15 Hydrocodone/Acetaminophen [Randall 5-325 mg Tablet] 1 - 2 tab PO ASDIR #15 tablet 04/20/16 Penicillin V Potassium [Penicillin Vk 500 mg Tablet] 500 mg PO BID #20 tablet 04/20/16 Butalb/Acetaminophen/Caffeine [Fioricet (50-325-40 mg) Tablet] 1 tab PO Q4HP PRN #30 tab 06/18/16 Promethazine HCl [Phenergan 25 mg Tablet] 1 - 2 tab PO Q6H PRN #15 tablet 06/18/16 Ibuprofen [Motrin 800 mg Tablet] 800 mg PO Q8H PRN #30 tab 08/17/16 Methocarbamol [Robaxin 500 mg Tablet] 500 mg PO QID PRN #20 tablet 11/26/17 Cefdinir 300 mg PO BID 7 Days #14 capsule 08/16/19 Allergies/Adverse Reactions: ketorolac tromethamine [From Toradol] Allergy (Verified 08/16/19 10:54) rash tramadol HCl [From Ultram] Allergy (Verified 08/16/19 10:54) rash Review of Systems All systems: reviewed and no additional remarkable complaints except as stated Constitutional: PRESENT: anorexia Nose, Mouth, and Throat: PRESENT: headache(s) Respiratory: PRESENT: cough, dyspnea, sputum Gastrointestinal: PRESENT: nausea Psychiatric: PRESENT: depression Physical Exam Vital Signs: Temp Pulse Resp BP Pulse Ox 99 F 94 21 H 127/76 H 92 08/16/19 15:11 08/16/19 15:11 08/16/19 16:49 08/16/19 16:49 08/16/19 16:49 Intake & Output 08/15/19 08/16/19 08/17/19 06:59 06:59 06:59 Intake Total 50 Balance 50 Weight 58.967 kg General appearance: PRESENT: well-developed - Well-developed and well-nourished 53-year-old female resting in bed. She is in moderate distress due to cough and difficulty breathing. Head exam: PRESENT: atraumatic, normocephalic Eye exam: PRESENT: conjunctiva pink. ABSENT: scleral icterus Ear exam: PRESENT: normal external ear exam. ABSENT: bleeding, drainage Mouth exam: PRESENT: other - Mask in place. High index of suspicion for Covid- 19. Neck exam: ABSENT: carotid bruit, JVD, lymphadenopathy Respiratory exam: PRESENT: prolonged expiratory phas, rales - Fine rales bilat erally, symmetrical, tachypnea. ABSENT: rhonchi, wheezes Cardiovascular exam: PRESENT: RRR, +S1, +S2. ABSENT: diastolic murmur, irregular rhythm, systolic murmur GI/Abdominal exam: PRESENT: normal bowel sounds, soft. ABSENT: distended, guarding, tenderness Rectal exam: PRESENT: deferred Gentrourinary exam: ABSENT: indwelling catheter Extremities exam: ABSENT: pedal edema Musculoskeletal exam: PRESENT: ambulatory, normal inspection. ABSENT: deformity Neurological exam: PRESENT: alert, awake, oriented to person, oriented to place, oriented to time, oriented to situation, CN II-XII grossly intact. ABSENT: altered, motor sensory deficit Psychiatric exam: PRESENT: anxious, unusual affect - Affect reflects her current illness. ABSENT: agitated Focused psych exam: ABSENT: delusional, paranoid, restlessness Skin exam: PRESENT: dry, normal color, warm. ABSENT: rash Results Laboratory Results: 08/16/19 11:00 08/16/19 11:00 08/16/19 08/16/19 11:00 11:00 WBC 9.4 RBC 4.49 Hgb 14.0 Hct 40.7 MCV 91 MCH 31.2 MCHC 34.4 RDW 12.7 Plt Count 249 Seg Neutrophils % 69.8 Sodium 135.5 L Potassium 4.0 Chloride 100 Carbon Dioxide 31 H Anion Gap 5 BUN 8 Creatinine 0.55 Est GFR ( Amer) > 60 Glucose 122 H Calcium 8.8 Total Bilirubin 0.6 AST 17 Alkaline Phosphatase 91 Total Protein 6.9 Albumin 3.4 L 08/16/19 08/16/19 11:00 11:00 Troponin I < 0.012 NT-Pro-B Natriuret Pep 55 Impressions: Chest X-Ray 08/16/19 11:18 IMPRESSION: Findings suggest early CHF exacerbation. Infectious etiology is not excluded. Chest/Abdomen CTA 08/16/19 12:59 IMPRESSION: 1. Patchy areas of ground-glass attenuation in both lungs may represent mild pulmonary edema, however infectious/inflammatory process is not excluded. Imaging features can be seen with COVID-19 pneumonia, though are nonspecific and can occur with a variety of infectious and noninfectious processes. 2. No pulmonary embolism. Assessment and Plan - Diagnosis (1) Suspected COVID-19 virus infection Is this a current diagnosis for this admission?: Yes Plan: 08/16/2019 Bilateral groundglass opacities. Hypoxia with increased work of breathing. C- reactive protein, coagulation studies, d-dimer and ferritin are pending. She has a normal white count and she does not have a pronounced fever. She is a smoker and is susceptible to multiple types of pneumonia. She does have a history of tuberculosis. Based on her general presentation and compromised respiratory status she is being tested for Covid-19 virus and will be placed in a patient under investigation isolation the area. In addition she will be given zinc, thiamine, vitamin C and azithromycin (as part of the antibacterial treatment). She will continue oxygen supplementation to maintain saturations greater than 90%. (2) Pneumonia Qualifiers: Pneumonia type: due to unspecified organism Laterality: bilateral Lung location: upper lobe of lung Qualified Code(s): J18.9 - Pneumonia, unspecified organism Is this a current diagnosis for this admission?: Yes Plan: 08/16/2019 The bilateral groundglass opacities are concerning for viral infection or other infections pneumonia. She will be placed on ceftriaxone and azithromycin and is being coded tested. I have also ordered expectorants and mucolytic's. (3) Acute respiratory failure with hypoxia Is this a current diagnosis for this admission?: Yes Plan: 08/16/2019 Secondary to the pneumonia and underlying COPD. Oxygen supplementation to maintain saturation greater than 90%. Due to suspicion of Covid-19 no nebulizer treatments at this time but she does have an albuterol inhaler available. If Covid-19 is negative we will establish a more aggressive regimen. Of note, she does not use any inhalers at home. (4) COPD exacerbation Is this a current diagnosis for this admission?: Yes Plan: 08/16/2019 Treatment outlined as above. Nicotine patch for tobacco dependence. We will hold on steroid therapy initially. (5) Headache Qualifiers: Headache type: unspecified Headache chronicity pattern: acute headache Intractability: intractable Qualified Code(s): R51 - Headache Is this a current diagnosis for this admission?: Yes Plan: 08/16/2019 The patient has a history of headaches. This headache is persistent and throbbing. It is likely associated with the infection and chronic coughing. We will continue the Fioricet listed on her home medication regimen. (6) Chronic back pain Qualifiers: Back pain location: back pain in unspecified location Back pain laterality: midline Qualified Code(s): M54.9 - Dorsalgia, unspecified; G89.29 - Other chronic pain Is this a current diagnosis for this admission?: Yes Plan: 08/16/2019 Patient is on anti-inflammatories as well as narcotic analgesia and muscle relaxants. In addition the coughing is aggravating her back. Supportive care at this point. (7) Tobacco dependence due to cigarettes Is this a current diagnosis for this admission?: Yes Plan: 08/16/2019 Nicotine patch and encourage tobacco cessation (8) Depression Qualifiers: Depression Type: unspecified Qualified Code(s): F32.9 - Major depressive disorder, single episode, unspecified Is this a current diagnosis for this admission?: Yes Plan: 08/16/2019 It appears that the patient is on Paxil. He does have a history of polypharmacy overdose that resulted in respiratory arrest, intubation and successful extubation. Awaiting medication reconciliation to see what her current medications are. She is also extremely anxious and might benefit from anx iolytics. (9) Hypercholesterolemia Is this a current diagnosis for this admission?: Yes Plan: 08/16/2019 The patient reports being on pravastatin. I will substitute atorvastatin during her hospitalization. (10) Gastroesophageal reflux disease Qualifiers: Esophagitis presence: without esophagitis Qualified Code(s): K21.9 - Gastro-esophageal reflux disease without esophagitis Is this a current diagnosis for this admission?: Yes Plan: 08/16/2019 We will substitute Protonix for her omeprazole. - Time Time Spent with patient: 35 or more minutes Smoking Cessation Education: 3 to 10 minutes Medications reviewed and adjusted accordingly: Yes - Inpatient Certification Based on my medical assessment, after consideration of the patient's comorbidities, presenting symptoms, or acuity I expect that the services needed warrant INPATIENT care.: Yes I certify that my determination is in accordance with my understanding of Medicare's requirements for reasonable and necessary INPATIENT services [42 CFR 412.3e].: Yes Medical Necessity: Need Close Monitoring Due to Risk of Patient Decompensation, Need For IV Fluids, Need for Pain Control, Need for IV Antibiotics 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
[2019-08-16 17:46] LABS: INTERNATIONAL RATION (INR) 1.07; PROTHROMBIN TIME 13.9 SEC (11.4-15.4)
[2019-08-16 17:47] LABS: PARTIAL THROMBOPLASTIN TIME 37.4 SEC (23.5-35.8)
[2019-08-16 17:49] LABS: D-DIMER 0.61 ug/mL (0.00-0.50)
[2019-08-16 18:05] LABS: FERRITIN 82.2 ng/mL (11.1-264.0)
[2019-08-16] MEDS: ASCORBIC ACID 500 MG TABLET PO SCH (20:35)
[2019-08-16] MEDS: HEPARIN SOD (PORCINE) 5,000 UNIT/ML 1 ML VIAL SUBCUT SCH (21:42)
[2019-08-16] MEDS: GUAIFENESIN 600 MG TABLET.SA PO SCH (21:43)
[2019-08-16] MEDS ORDERED: ATORVASTATIN CALCIUM 20 MG TABLET PO SCH (22:00)
[2019-08-16] MEDS ORDERED: MELATONIN 5 MG TABLET PO SCH (22:00)
[2019-08-17] MEDS: HEPARIN SOD (PORCINE) 5,000 UNIT/ML 1 ML VIAL SUBCUT SCH (05:27)
[2019-08-17] MEDS ORDERED: PANTOPRAZOLE SODIUM 40 MG TABLET.DR PO SCH (06:00)
[2019-08-17 06:36] LABS: ABSOLUTE BASOPHILS # (AUTO) 0.1 10^3/uL (0.0-0.2); ABSOLUTE EOSINOPHILS # (AUTO) 0.5 10^3/uL (0.0-0.6); ABSOLUTE LYMPHOCYTES (AUTO) 1.9 10^3/uL (0.5-4.7); ABSOLUTE MONOCYTES (AUTO) 0.6 10^3/uL (0.1-1.4); ABSOLUTE NEUT (AUTO) 2.7 10^3/uL (1.7-8.2); BASOPHILS % (AUTO) 1.2 % (0-2); EOSINOPHILS % (AUTO) 8.5 % (0-6); HEMATOCRIT 38.9 % (36.0-47.0); HEMOGLOBIN 13.3 g/dL (12.0-15.5); LYMPHOCYTES % (AUTO) 33.9 % (13-45); MEAN CORPUSCULAR HEMOGLOBIN 30.7 pg (27.0-33.4); MEAN CORPUSCULAR HGB CONC 34.2 g/dL (32.0-36.0); MEAN CORPUSCULAR VOLUME 90 fl (80-97); PLATELET COUNT 244 10^3/uL (150-450); RED BLOOD COUNT 4.32 10^6/uL (3.72-5.28); RED CELL DISTRIBUTION WIDTH 12.6 % (11.5-14.0); SEGMENTED NEUTROPHILS % (AUTO) 46.4 % (42-78); TOTAL CELLS COUNTED % (AUTO) 100 %; WHITE BLOOD COUNT 5.7 10^3/uL (4.0-10.5)
[2019-08-17 06:57] LABS: ANION GAP 8 (5-19); BLOOD UREA NITROGEN 9 mg/dL (7-20); CALCIUM 8.9 mg/dL (8.4-10.2); CARBON DIOXIDE 27 mmol/L (22-30); CHLORIDE 102 mmol/L (98-107); GLUCOSE 146 mg/dL (75-110); POTASSIUM 3.9 mmol/L (3.6-5.0)
[2019-08-17 07:16] LABS: APPEARANCE,URINE CLEAR; BILIRUBIN,URINE NEGATIVE (NEGATIVE); COLOR,URINE YELLOW; GLUCOSE, URINE NEGATIVE (NEGATIVE); KETONES,URINE NEGATIVE (NEGATIVE); LEUKOCYTE ESTERASE,URINE SMALL (NEGATIVE); NITRITE,URINE NEGATIVE (NEGATIVE); PROTEIN,URINE NEGATIVE (NEGATIVE); UROBILINOGEN,URINE NEGATIVE mg/dL (<2.0)
[2019-08-17] MEDS: GUAIFENESIN 600 MG TABLET.SA PO SCH (09:35)
[2019-08-17] MEDS: ASCORBIC ACID 500 MG TABLET PO SCH (09:35)
[2019-08-17] MEDS ORDERED: THIAMINE HCL 100 MG TABLET PO SCH (10:00)
[2019-08-17] MEDS ORDERED: ZINC SULFATE 220 MG CAPSULE PO SCH (10:00)
[2019-08-17 10:05] VITALS: BP 91/54
[2019-08-17] MEDS ORDERED: CEFTRIAXONE 1 GM/D5W RTU 1 GM/50 ML RTUPB IV SCH (12:00)
--- NOTE | 2019-08-17 16:49 | Left Against Medical Advice ---
Against Medical Advice Admission Date/Time: 08/16/19 17:05 Primary Care Provider: HENRI NEWMAN MD Date of Patient Emigration: 08/17/19 - Diagnosis: (1) Suspected COVID-19 virus infection Is this a current diagnosis for this admission?: Yes (2) Pneumonia Is this a current diagnosis for this admission?: Yes (3) Acute respiratory failure with hypoxia Is this a current diagnosis for this admission?: Yes (4) COPD exacerbation Is this a current diagnosis for this admission?: Yes (5) Headache Is this a current diagnosis for this admission?: Yes (6) Chronic back pain Is this a current diagnosis for this admission?: Yes (7) Tobacco dependence due to cigarettes Is this a current diagnosis for this admission?: Yes (8) Depression Is this a current diagnosis for this admission?: Yes (9) Hypercholesterolemia Is this a current diagnosis for this admission?: Yes (10) Gastroesophageal reflux disease Is this a current diagnosis for this admission?: Yes - Summary: Summary: Please see Admission and Progress Notes as well. YASIR AVILA is a 53 F, who LEFT AGAINST MEDICAL ADVICE. The Patient was admitted on 08/16/19 17:05. I was contacted by the patient's nurse. She had multiple complaints. She complained of not being able to take a shower, the nicotine patch being too low of a dose and evidently there are some family issues. From the nurses station patient can be heard on the phone using extremely profanity. The nurse reports that she was screaming to get her paperwork to leave AGAINST MEDICAL ADVICE. I discussed this with the patient's nurse. The patient did leave AGAINST MEDICAL ADVICE. In my opinion with such hostility attempting to keep the patient will be more harmful to the staff and very disturbing for the other patients. This is especially critical since all of these patients are either coag positive for underage desiccation.
[2019-08-17] MEDS ORDERED: AZITHROMYCIN 500 MG in DEXTROSE 5%-WATER 250 ML IV SCH (18:00)
== END 2019-08-17 12:59 | disposition left against medical advice (07) | DRG 193 ==
LOC: ER 10:30 → EH 17:05 → 3N 19:29
PROVIDERS: ADMIT Hospitalist; ATTEND Hospitalist
DX: J18.9 Pneumonia, unspecified organism (principal); J96.01 Acute respiratory failure with hypoxia; J44.0 Chronic obstructive pulmonary disease with (acute) lower respiratory infection; J44.1 Chronic obstructive pulmonary disease with (acute) exacerbation; Z20.828 Contact with and (suspected) exposure to other viral communicable diseases; I11.0 Hypertensive heart disease with heart failure; I50.9 Heart failure, unspecified; M19.90 Unspecified osteoarthritis, unspecified site; F32.9 Major depressive disorder, single episode, unspecified; F17.210 Nicotine dependence, cigarettes, uncomplicated; E78.5 Hyperlipidemia, unspecified; K21.9 Gastro-esophageal reflux disease without esophagitis; R51 Headache; M54.9 Dorsalgia, unspecified; E78.00 Pure hypercholesterolemia, unspecified; Z87.898 Personal history of other specified conditions; Z88.8 Allergy status to other drugs, medicaments and biological substances; Z90.49 Acquired absence of other specified parts of digestive tract; Z86.11 Personal history of tuberculosis
CPT/HCPCS: 36415; 71045; 71275; 80048; 80053; 81001; 82728; 83735; 83880; 84484; 85025; 85379; 85610; 85730; 86140; 87040; 87635; 93005; 93010; 96365; 99285; C9803; J0696; J1644; J3490

== ENCOUNTER 2019-12-31 16:16 | Emergency (ER) | payer MEDICARE, MEDICAID ==
--- NOTE | 2019-12-31 16:54 | ER Document Report ---
ED General - General Chief Complaint: Overdose Stated Complaint: POSSIBLE OVERDOSE Time Seen by Provider: 12/31/19 16:31 Primary Care Provider: HENRI NEWMAN MD [Primary Care Provider] - Follow up as needed Mode of Arrival: Medic Information source: Patient Notes: This 54-year-old woman presents to the emergency department with a history of snorted a quantity of heroin today and then became unresponsive. EMS was called to the home patient was found to have a suppressed respiratory function she was given intranasal Narcan 8 mg with a almost immediate response. Patient states that she has use 2-3 times over the past 3 days. She has a history of opiate use dating back 5 years and had been on Suboxone for the past 2 years. Presently she is alert and responsive and able to answer questions appropriately. TRAVEL OUTSIDE OF THE [place] IN LAST 30 DAYS: No - Related Data Allergies/Adverse Reactions: ketorolac tromethamine [From Toradol] Allergy (Verified 08/16/19 10:54) rash tramadol HCl [From Ultram] Allergy (Verified 08/16/19 10:54) rash Past Medical History - Social History Smoking Status: Unknown if Ever Smoked Family History: CAD, Malignancy Patient has homicidal ideation: No - Past Medical History Cardiac Medical History: Reports: Hx Congestive Heart Failure, Hx Hypercholesterolemia, Hx Hypertension Denies: Hx Coronary Artery Disease Pulmonary Medical History: Reports: Hx Bronchitis, Hx COPD, Hx Pneumonia, Hx Intubation, Hx Tuberculosis Neurological Medical History: Denies: Hx Seizures Endocrine Medical History: Denies: Hx Diabetes Mellitus Type 1, Hx Diabetes Mellitus Type 2, Hx Hypothyroidism Renal/ Medical History: Denies: Hx Peritoneal Dialysis GI Medical History: Reports: Hx Gastroesophageal Reflux Disease Musculoskeletal Medical History: Reports Hx Arthritis Psychiatric Medical History: Reports: Hx Depression Past Surgical History: Reports: Hx Appendectomy, Hx Hysterectomy, Hx Tonsillectomy - Immunizations Hx Diphtheria, Pertussis, Tetanus Vaccination: No - > 10 years Review of Systems - Review of Systems Notes: Constitutional: Negative for fever. HENT: Negative for sore throat. Eyes: Negative for visual changes. Cardiovascular: Negative for chest pain. Respiratory: Negative for shortness of breath. Gastrointestinal: Negative for abdominal pain, vomiting or diarrhea. Genitourinary: Negative for dysuria. Musculoskeletal: Negative for back pain. Skin: Negative for rash. Neurological: See HPI 10 point ROS negative except as marked above and in HPI. Physical Exam - Vital signs Vitals: Resp Pulse Ox 28 H 97 12/31/19 16:21 12/31/19 16:21 - Notes Notes: PHYSICAL EXAMINATION: Physical Exam: General: Well-nourished well-developed 54-year-old female no acute distress in no acute distress HEENT: NC/AT, pupils equal round and reactive to light, MM moist,nares clear, oropharynx clear, airway patent Neck: supple, no adenopathy, no masses. Good range of motion Lungs: clear, no wheezing, no rales no rhonchi CVS: Regular rate and rhythm no murmur gallop or rub Abdomen: Soft, active, nontender, no masses, no hepatosplenomegaly Ext: No edema, clubbing or cyanosis. Neuro: Alert and responsive, moving all 4 extremities on command, cranial nerves intact, no focal findings Skin: Intact no open lesions, no rash Course - Vital Signs Vital signs: Temp Pulse Resp BP Pulse Ox 98.4 F 17 139/73 H 96 12/31/19 16:42 12/31/19 17:59 12/31/19 18:00 12/31/19 17:00 - Laboratory Result Diagrams: 12/31/19 16:28 12/31/19 16:28 Laboratory results interpreted by me: 12/31/19 12/31/19 12/31/19 16:28 16:28 16:50 WBC 13.3 H RDW 14.6 H Lymph % (Auto) 10.8 L Jewell % (Auto) 1.4 L Absolute Neuts (auto) 11.5 H Seg Neutrophils % 86.6 H Glucose 268 H Urine Glucose (UA) 150 H - EKG Interpretation by Me Rhythm: NSR - EKG interpreted by Dr. Mansfield: Normal sinus rhythm, rate 99, [place] interval 152 ms QT interval 368 ms, normal axis, no acute ST or T wave abnormalities, no ischemic findings, there are no previous EKGs to compare. Interpretation normal EKG Discharge - Discharge Clinical Impression: Accidental heroin overdose Qualifiers: Encounter type: initial encounter Qualified Code(s): T40.1X1A - Poisoning by heroin, accidental (unintentional), initial encounter Condition: Good Disposition: HOME, SELF-CARE Instructions: Overdose ([facility]) Additional Instructions: You were seen in the emergency department tonight with a respiratory suppression secondary to overdose of heroin. You should discontinue the use of heroin and other opiates given the risks of overdose and as a complication. If your symptoms are worsening or if you have other concerns you may return to the emergency department for further evaluation and treatment HOME CARE INSTRUCTIONS & INFORMATION: Thank you for choosing us for your medical needs. We hope you're satisfied with the care you received. After you leave, you must properly care for your problem and, at the same time, observe its progress. Any condition can change. Some illnesses can change rapidly over hours or days. If your condition worsens, return to the Emergency Department or see your physician promptly. ABOUT YOUR X-RAYS AND EKG'S: If you had an EKG or X-rays taken, they have been read by the Emergency Physician. The X-rays and EKG's will also be read by a Radiologist or Skiver Counter within 24 hours. If discrepancies are noted, you will be notified by telephone. Please be certain the ED has a correct telephone number & address where you can be reached. Also, realize that some fractures or abnormalities do not show up on initial X-rays. If your symptoms continue, see your physician. ABOUT YOUR LABORATORY TEST: If you had laboratory tests, the results have been reviewed by the Emergency Physician. Some test results (for example cultures) may not be available for several days. You will be contacted if any test result shows you need additional treatment. Please be certain the ED has a correct telephone number and address where you can be reached. ABOUT YOUR MEDICATIONS: You will receive instructions on how to take your medicine on the prescription label you receive. Additional information may be provided by the Pharmacy. If you have questions afterwards, call the ED for clarification or further instructions. Some prescribed medications may cause drowsiness. Do not perform tasks such as driving a car or operating machinery without consulting your Pharmacist. If you feel you need a refill of pain m edication, your condition will need re-evaluation. Please do not call for a refill of any medication. ABOUT YOUR SIGNATURE: Signature of this document acknowledges to followin. Understanding that you received emergency treatment and that you may be released before al medical problems are known or treated. Please be certain the ED has a correct phone number & address where you can be reached. 2. Acknowledgement that you will arrange for follow-up care as recommended. 3. Authorization for the Emergency Physician to provide information to your follow-up Physician in order to maximize your care. AT ANY TIME, IF YOUR SYMPTOMS CHANGE SIGNIFICANTLY OR WORSEN OR YOU DEVELOP NEW SYMPTOMS, RETURN TO THE EMERGENCY DEPARTMENT IMMEDIATELY FOR RE-EVALUATION. OUR GOAL IS TO PROVIDE EXCELLENT MEDICAL CARE! WE HOPE THAT WE HAVE MET YOUR EXPECTATIONS DURING YOUR EMERGENCY DEPARTMENT VISIT AND THAT YOU FEEL YOU HAVE RECEIVED EXCELLENT CARE! Referrals: HENRI NEWMAN MD [Primary Care Provider] - Follow up as needed
[2019-12-31] MEDS ORDERED: ONDANSETRON HCL INJ/PF 4 MG/2 ML SDV IV ONE (16:58)
[2019-12-31] MEDS ORDERED: NORMAL SALINE 1000 ML 1,000 ML IV ONE (17:12)
[2019-12-31 17:28] LABS: APPEARANCE,URINE CLEAR; BILIRUBIN,URINE NEGATIVE (NEGATIVE); COLOR,URINE YELLOW; GLUCOSE, URINE 150 mg/dL (NEGATIVE); KETONES,URINE NEGATIVE (NEGATIVE); PROTEIN,URINE NEGATIVE (NEGATIVE); URINE SPECIFIC GRAVITY 1.016; UROBILINOGEN,URINE NEGATIVE mg/dL (<2.0)
[2019-12-31 17:36] LABS: URINE BARBITURATES SCREEN NEGATIVE; URINE BENZODIAZEPINES SCREEN NEGATIVE; URINE COCAINE SCREEN NEGATIVE; URINE MARIJUANA (THC) SCREEN NEGATIVE; URINE METHADONE SCREEN NEGATIVE; URINE PHENCYCLIDINE SCREEN NEGATIVE
[2019-12-31 17:59] LABS: ABSOLUTE EOSINOPHILS # (AUTO) 0.1 10^3/uL (0.0-0.6); ABSOLUTE LYMPHOCYTES (AUTO) 1.4 10^3/uL (0.5-4.7); ABSOLUTE MONOCYTES (AUTO) 0.2 10^3/uL (0.1-1.4); ABSOLUTE NEUT (AUTO) 11.5 10^3/uL (1.7-8.2); BASOPHILS % (AUTO) 0.3 % (0-2); EOSINOPHILS % (AUTO) 0.9 % (0-6); HEMATOCRIT 40.1 % (36.0-47.0); HEMOGLOBIN 13.5 g/dL (12.0-15.5); LYMPHOCYTES % (AUTO) 10.8 % (13-45); MEAN CORPUSCULAR HGB CONC 33.5 g/dL (32.0-36.0); MEAN CORPUSCULAR VOLUME 92 fl (80-97); MONOCYTES % (AUTO) 1.4 % (3-13); PLATELET COUNT 196 10^3/uL (150-450); RED BLOOD COUNT 4.34 10^6/uL (3.72-5.28); RED CELL DISTRIBUTION WIDTH 14.6 % (11.5-14.0); SEGMENTED NEUTROPHILS % (AUTO) 86.6 % (42-78); TOTAL CELLS COUNTED % (AUTO) 100 %; WHITE BLOOD COUNT 13.3 10^3/uL (4.0-10.5)
--- NOTE | 2019-12-31 18:06 | EKG REPORT ---
SEVERITY:- NORMAL ECG - SINUS RHYTHM : Confirmed by: Azeem Pascal MD 31-Dec-2019 18:05:27
[2019-12-31 18:14] LABS: ALBUMIN 3.6 g/dL (3.5-5.0); ALKALINE PHOSPHATASE 77 U/L (38-126); ANION GAP 12 (5-19); ASPARTATE AMINO TRANSFERASE 29 U/L (14-36); BILIRUBIN,DIRECT 0.2 mg/dL (0.0-0.4); BILIRUBIN,TOTAL 0.2 mg/dL (0.2-1.3); BLOOD UREA NITROGEN 16 mg/dL (7-20); CALCIUM 9.2 mg/dL (8.4-10.2); CARBON DIOXIDE 25 mmol/L (22-30); CHLORIDE 105 mmol/L (98-107); GLUCOSE 268 mg/dL (75-110); POTASSIUM 4.2 mmol/L (3.6-5.0); TOTAL PROTEIN 6.8 g/dL (6.3-8.2)
[2019-12-31 19:59] VITALS: BP 110/64
== END 2019-12-31 20:01 | disposition home or self-care (01) ==
LOC: ER 16:16
DX: T40.1X1A Poisoning by heroin, accidental (unintentional), initial encounter (principal); Y92.009 Unspecified place in unspecified non-institutional (private) residence as the place of occurrence of the external cause; I10 Essential (primary) hypertension; J44.9 Chronic obstructive pulmonary disease, unspecified; Z88.8 Allergy status to other drugs, medicaments and biological substances; Z88.6 Allergy status to analgesic agent
CPT/HCPCS: 93005; 99284; 96374; 36415; 85025; 80053; 81001; 80307; 93010; J2405; J7030

== ENCOUNTER 2020-02-23 21:31 | Emergency (ER) | payer MEDICARE, MEDICAID ==
[2020-02-23 21:38] VITALS: BP 145/78
[2020-02-23] MEDS ORDERED: CLINDAMYCIN HCL 150 MG CAPSULE PO ONE (21:50)
--- NOTE | 2020-02-23 21:51 | ER Document Report ---
HPI - HPI Time Seen by Provider: 02/23/20 21:40 Pain Level: 4 Context: Patient is a 54-year-old female presents to the emergency department with a chief complaint of a, "spider bite" to her right anterior jose. Patient states that she noticed it a week ago. States that it did drain some purulent fluid. Denies any fever, body aches, or chills, but states that she has a, "fever" where the spider bite is. According to the patient's medical record, she has history of amphetamine use and abscesses in the past. - ROS Systems Reviewed and Negative: Yes All other systems reviewed and negative - CONSTITUTIONAL Constitutional: DENIES: Fever, Chills - CARDIOVASCULAR Cardiovascular: DENIES: Chest pain - RESPIRATORY Respiratory: DENIES: Trouble Breathing, Coughing - REPRODUCTIVE Reproductive: DENIES: : - MUSCULOSKELETAL Musculoskeletal: REPORTS: Extremity pain - See HPI. - DERM Skin Problems: Cyst - See HPI., Pustule - See HPI. Past Medical History - Social History Smoking Status: Current Every Day Smoker Chew tobacco use (# tins/day): No Frequency of alcohol use: None Drug Abuse: None Family History: CAD, Malignancy - Past Medical History Cardiac Medical History: Reports: Hx Congestive Heart Failure, Hx Hypercholesterolemia, Hx Hypertension Denies: Hx Coronary Artery Disease Pulmonary Medical History: Reports: Hx Bronchitis, Hx COPD, Hx Pneumonia, Hx Intubation, Hx Tuberculosis Neurological Medical History: Denies: Hx Seizures Endocrine Medical History: Denies: Hx Diabetes Mellitus Type 1, Hx Diabetes Mellitus Type 2, Hx Hypothyroidism Renal/ Medical History: Denies: Hx Peritoneal Dialysis GI Medical History: Reports: Hx Gastroesophageal Reflux Disease Musculoskeletal Medical History: Reports Hx Arthritis Psychiatric Medical History: Reports: Hx Depression Past Surgical History: Reports: Hx Appendectomy, Hx Hysterectomy, Hx Tonsillectomy - Immunizations Hx Diphtheria, Pertussis, Tetanus Vaccination: No - > 10 years Vertical Provider Document - CONSTITUTIONAL Agree With Documented VS: Yes Exam Limitations: No Limitations General Appearance: No Apparent Distress - INFECTION CONTROL TRAVEL OUTSIDE OF THE [place] IN LAST 30 DAYS: No - HEENT HEENT: Atraumatic, Normocephalic, PERRLA - NECK Neck: Normal Inspection - RESPIRATORY Respiratory: No Respiratory Distress - CARDIOVASCULAR Cardiovascular: Regular Rate, Regular Rhythm - MUSCULOSKELETAL/EXTREMETIES Musculoskeletal/Extremeties: FROM, Tender - NEURO Level of Consciousness: Awake, Alert, Appropriate Motor/Sensory: No Motor Deficit, No Sensory Deficit - DERM Integumentary: Warm, Dry, Abscess - Drained, with no purulent drainage. Surrounding cellulitis Course - Re-evaluation Re-evalutation: 02/23/20 22:10 Patient presents with symptoms most consistent with an acute cellulitis from an abscess that drained on its own. Vitals within normal limits. Patient does not meet sepsis criteria is overall very well in appearance. Exam and history are not consistent with DVT. Patient will be started on coverage for both staph and strep. At this time will discharge with return precautions and follow-up recommendations. Verbal discharge instructions given a the bedside and opportunity for questions given. Medication warnings reviewed. Patient is in agreement with this plan and has verbalized understanding of return precautions and the need for primary care follow-up in the next 24-72 hours. - Vital Signs Vital signs: Temp Pulse Resp BP Pulse Ox 98.2 F 88 19 145/78 H 93 02/23/20 21:36 02/23/20 21:36 02/23/20 21:36 02/23/20 21:36 02/23/20 21:36 - Laboratory Results Critical Laboratory Results Reviewed: No Critical Results - Radiology Results Critical Radiology Results Reviewed: No Critical Results Discharge - Discharge Clinical Impression: Abscess Cellulitis Qualifiers: Site of cellulitis: extremity Site of cellulitis of extremity: lower extremity Laterality: right Qualified Code(s): L03.115 - Cellulitis of right lower limb Condition: Stable Disposition: HOME, SELF-CARE Additional Instructions: The rash is likely due to infection of your skin. You need to take the antibiotics as prescribed. Do not stop even if the rash goes away until you have completed all the antibiotics. The area of redness was traced out here in the emergency department with a marking pen. You need to return to emergency department if the redness spreads outside of this area by more than 2 cm in any direction. You should also return if you develop fevers with temperature greater than 101, persistent vomiting, worsening pain, or have any other symptoms that are concerning to you. Prescriptions: Clindamycin HCl [Cleocin 150 mg Capsule] 300 mg PO Q6 7 Days #56 capsule Referrals: HENRI NEWMAN MD [Primary Care Provider] - Follow up in 1 week
== END 2020-02-23 22:10 | disposition home or self-care (01) ==
LOC: ER 21:31
DX: L03.115 Cellulitis of right lower limb (principal); L02.415 Cutaneous abscess of right lower limb; F17.200 Nicotine dependence, unspecified, uncomplicated; I50.9 Heart failure, unspecified; I11.0 Hypertensive heart disease with heart failure; E78.00 Pure hypercholesterolemia, unspecified
CPT/HCPCS: 99283; A9270